=== PATIENT | female | born 1995 | race Two or more races ===

== ENCOUNTER 2019-03-22 17:20 | Emergency (ER) | payer OTHER ==
[~2019-03-22] VITALS: Ht 170.2 cm; Wt 66.2 kg
[2019-03-22 17:25] VITALS: BP 117/73; Ht 170.2 cm; Wt 66.2 kg
== END 2019-03-22 17:35 | disposition home or self-care (01) ==
LOC: ED 17:20
DX: S62.304D Unspecified fracture of fourth metacarpal bone, right hand, subsequent encounter for fracture with routine healing (principal); Z13.89 Encounter for screening for other disorder; X58.XXXD Exposure to other specified factors, subsequent encounter